=== PATIENT | male | born 2000 | race Caucasian/White ===

== ENCOUNTER 2022-10-29 09:01 | Emergency (ER) | payer OTHER ==
[~2022-10-29] VITALS: Ht 172.7 cm; Wt 85.0 kg
[2022-10-29] MEDS ORDERED: IBUPROFEN 600MG TABLET PO STA (09:11)
[2022-10-29] MEDS ORDERED: TETANUS, DIPHTHERIA, PERTUSSIS VAC/PF 0.5ML (>10YR OLD) IM ONE ×2 (09:15→11:15)
[2022-10-29] MEDS ORDERED: BO1 TP (11:31)
[2022-10-29] MEDS ORDERED: IBUP-2029 MT (11:31)
[2022-10-29] MEDS ORDERED: CEPH500C2 MT (11:31)
[2022-10-29 13:24] VITALS: BP 128/87
== END 2022-10-29 13:26 | disposition home or self-care (01) ==
LOC: ER 09:01
DX: R51.9 Headache, unspecified (principal); M25.551 Pain in right hip
CPT/HCPCS: 70450; 73502; 90471; 90715; 99285; Z7610

== ENCOUNTER 2023-07-01 07:51 | Emergency (ER) | payer SELFPAY ==
[~2023-07-01] VITALS: Ht 167.6 cm; Wt 93.0 kg
[~2023-07-01 07:51] MED LIST: BO1 TP; CEPH500C2 MT; IBUP-2029 MT
[2023-07-01 08:06] VITALS: BP 137/89; PULSE 103; RESP 16; TEMP 98.2; O2SAT 100
[2023-07-01] MEDS ORDERED: ONDA4TAB11 PO (08:42)
== END 2023-07-01 08:56 | disposition home or self-care (01) ==
LOC: ER 07:51
DX: R11.2 Nausea with vomiting, unspecified (principal)
CPT/HCPCS: 99283